=== PATIENT | male | born 1995 | race African-American/Black ===

== ENCOUNTER 2017-09-19 20:20 | Emergency (ER) | payer OTHER ==
[~2017-09-19] VITALS: Ht 175.3 cm; Wt 102.3 kg
[2017-09-19 20:29] VITALS: BP 127/65; PULSE 70; TEMP 99.2
== END 2017-09-19 22:47 | disposition home or self-care (01) ==
LOC: COL.ER 20:20
DX: S60.011A Contusion of right thumb without damage to nail, initial encounter (principal); F17.210 Nicotine dependence, cigarettes, uncomplicated; W22.8XXA Striking against or struck by other objects, initial encounter; Y92.39 Other specified sports and athletic area as the place of occurrence of the external cause; Y93.67 Activity, basketball
CPT/HCPCS: Q4021